=== PATIENT | female | born 1955 | race Caucasian/White ===

== ENCOUNTER 2018-12-06 11:36 | Outpatient (REF) | payer OTHER, SELFPAY ==
--- NOTE | 2018-12-06 10:00 | PAPFT_PTH ---
PATIENT: Ines Bhatti [facility] U#:[id number] AGE/SX: 63/F ROOM: RE12/06/[address]: Gerri Coker : 1955 BED: DIS: 12/06/2018 SPEC #: [id number] RECD: 12/07/18 12:53 STATUS: FARHAN REMaged #: [id number] NELSON: 12/06/18 10:[address]: Gerri Madsen DEPT: [facility] Cytology RECD BY: Juana Stapleton ENTERED: 12/07/18 12:53 SP TYPE: PAPFT OTHR DR: Rosa Jensen Tissues: 1 - CX/ENDOCX FOR PAP SMEARS Procedures: PAP THIN PREP/[facility] Screening HPV DNA PROBE Comments: [id number]
== END 2018-12-06 11:56 ==
LOC: NCHCN 11:36
PROVIDERS: PCP Internal Medicine; Visit Provider Nurse Practitioner Family
DX: Z00.00 Encounter for general adult medical examination without abnormal findings (principal); Z12.4 Encounter for screening for malignant neoplasm of cervix; Z11.51 Encounter for screening for human papillomavirus (HPV)
CPT/HCPCS: 88142; 87624

== ENCOUNTER 2019-03-23 14:17 | Outpatient (REF) | payer OTHER, SELFPAY ==
[2019-03-23 22:38] LABS: C-Reactive Protein 0.09 mg/dL (0.0-0.3)
[2019-03-23 23:08] LABS: ESR 12 mm/hr (0-30)
== END 2019-03-23 14:37 ==
LOC: NCHCN 14:17
PROVIDERS: PCP Internal Medicine; Visit Provider Nurse Practitioner Family
DX: M35.3 Polymyalgia rheumatica (principal)
CPT/HCPCS: 85652; 86140

== ENCOUNTER 2020-06-29 16:01 | Outpatient (REF) | payer MEDICARE, SELFPAY ==
[2020-06-29 13:32] LABS: C-Reactive Protein < 0.05 mg/dL (0.0-0.3)
[2020-06-29 14:17] LABS: ESR 10 mm/hr (0-30)
== END 2020-06-29 16:21 ==
LOC: NCHCN 16:01
PROVIDERS: PCP Internal Medicine; Visit Provider Nurse Practitioner Family
DX: R42 Dizziness and giddiness (principal); R03.0 Elevated blood-pressure reading, without diagnosis of hypertension
CPT/HCPCS: 85652; 86140

== ENCOUNTER 2020-12-20 10:32 | Outpatient (REF) | payer MEDICARE, BC, SELFPAY ==
[2020-12-20 15:43] LABS: HGB 15.4 g/dL (11.2-15.7); MCH 31.4 pg (27.0-33.0); MCHC 33.5 % (32.0-36.0); MCV 93.9 fL (80-95); MPV 9.5 fL (8.0-11.0); Platelet Count 335 10^3/uL (130-400); RDW 12.8 % (11.7-14.6); RDW-SD 44.4 fL; WBC 4.86 10^3/uL (4.4-10.8)
[2020-12-20 16:07] LABS: Hemoglobin A1C 5.6 % (<5.7)
[2020-12-20 16:45] LABS: ALT 26 U/L (14-59); AST 25 U/L (15-37); Albumin 4.1 g/dL (3.4-5.0); Alkaline Phosphatase 78 U/L (46-116); Anion Gap 8.8 mmol/L (3-11); BUN 19 mg/dL (7-18); Bilirubin, Total 0.3 mg/dL (0.2-1.0); CO2 30.2 mmol/L (21.0-32.0); Calcium 9.6 mg/dL (8.5-10.1); Calculated LDL 167 mg/dL (<100); Chloride 105 mmol/L (98-107); Cholesterol 256 mg/dL (<200); Estimated GFR 55.47 (mL/min/1.73m2); Glucose 90 mg/dL (74-106); HDL Cholesterol 55 mg/dL (40-60); Potassium 4.5 mmol/L (3.5-5.1); Sodium 144 mmol/L (136-145); Total Protein 7.4 g/dL (6.4-8.2); Triglyceride 173 mg/dL (<150)
== END 2020-12-20 10:33 | disposition home or self-care (01) ==
LOC: NCHCN 10:32
PROVIDERS: PCP Internal Medicine; Visit Provider Nurse Practitioner Family
DX: Z00.00 Encounter for general adult medical examination without abnormal findings (principal); R03.0 Elevated blood-pressure reading, without diagnosis of hypertension
CPT/HCPCS: 80053; 80061; 85027; 83036

== ENCOUNTER 2023-03-05 13:41 | Outpatient (REF) | payer MEDICARE, BC, SELFPAY ==
--- NOTE | 2023-03-05 11:00 | SKI_PTH ---
PATIENT: Ines Bhatti LOC: [facility]#:[id number] AGE/SX: 67/F ROOM: RE03/05/[address]: Gerri Coker : 1955 BED: DIS: 03/05/2023 SPEC #: [id number] RECD: 03/06/23 11:01 STATUS: FARHAN CHAUDHARI #: [id number] NELSON: 03/05/23 11:[address]: Gerri Madsen DEPT: Surgical Specimen RECD BY: Juana Stapleton ENTERED: 03/06/23 11:01 SP TYPE: FORD KU DR: Rosa Jensen Tissues: 1 - SKIN BIOPSY(SHAVE/PUNCH) Procedures: SKIN LEVEL 4 Comments: [id number]
== END 2023-03-05 13:42 | disposition home or self-care (01) ==
LOC: NCHCN 13:41
PROVIDERS: PCP Internal Medicine; Visit Provider Nurse Practitioner Family
DX: R23.8 Other skin changes (principal)
CPT/HCPCS: 88305

== ENCOUNTER 2023-06-22 15:49 | Outpatient (REF) | payer MEDICARE, BC, SELFPAY ==
[2023-06-22 21:50] LABS: Abs Immature Grans 0.02 10^3/uL (0.0-0.06); Absolute Basophil Count 0.03 10^3/uL (0.0-0.2); Absolute Eosinophil Count 0.09 10^3/uL (0.0-0.7); Absolute Lymphocyte Count 1.54 10^3/uL (1.2-3.4); Absolute Monocyte Count 0.43 10^3/uL (0.1-0.8); Absolute Neutrophil Count 4.21 10^3/uL (1.2-6.7); Basophils % 0.5; Eosinophils % 1.4; HCT 43.3 % (36.0-46.0); HGB 14.4 g/dL (11.2-15.7); Immature Grans % 0.3; Lymphocytes % 24.4; MCH 30.5 pg (27.0-33.0); MCHC 33.3 % (32.0-36.0); MCV 92 fL (80-95); MPV 9.2 fL (8.0-11.0); Monocytes % 6.8; Neutrophils % 66.6; Platelet Count 366 10^3/uL (130-400); RBC 4.72 10^6/uL (3.93-5.22); RDW 12.9 % (11.7-14.6); RDW-SD 43.8 fL; WBC 6.32 10^3/uL (4.4-10.8)
[2023-06-22 22:17] LABS: BUN 16 mg/dL (7-18); Calcium 9.5 mg/dL (8.5-10.1); Calculated LDL 190 mg/dL (<100); Chloride 105 mmol/L (98-107); Cholesterol 276 mg/dL (<200); Estimated GFR 60.98 (mL/min/1.73m2); Glucose 102 mg/dL (74-106); HDL Cholesterol 68 mg/dL (40-60); Potassium 4.6 mmol/L (3.5-5.1); Sodium 140 mmol/L (136-145); Triglyceride 93 mg/dL (<150)
== END 2023-06-22 15:50 | disposition home or self-care (01) ==
LOC: NCHCN 15:49
PROVIDERS: PCP Internal Medicine; Visit Provider Nurse Practitioner Family
DX: R03.0 Elevated blood-pressure reading, without diagnosis of hypertension (principal); R79.89 Other specified abnormal findings of blood chemistry
CPT/HCPCS: 80048; 80061; 85025

== ENCOUNTER 2023-07-01 11:21 | Outpatient (REF) | payer MEDICARE, BC, SELFPAY ==
[2023-07-01 15:09] LABS: Calculated LDL 184 mg/dL (<100); Cholesterol 255 mg/dL (<200); HDL Cholesterol 56 mg/dL (40-60); Triglyceride 75 mg/dL (<150)
== END 2023-07-01 11:22 | disposition home or self-care (01) ==
LOC: NCHCN 11:21
PROVIDERS: PCP Internal Medicine; Visit Provider Nurse Practitioner Family
DX: E78.89 Other lipoprotein metabolism disorders (principal)
CPT/HCPCS: 80061

== ENCOUNTER 2023-11-17 15:11 | Outpatient (REF) | payer MEDICARE, BC, SELFPAY ==
[2023-11-17 15:20] LABS: ALT 54 U/L (14-59); AST 38 U/L (15-37); Albumin 3.9 g/dL (3.4-5.0); Alkaline Phosphatase 106 U/L (46-116); Bilirubin, Total 0.5 mg/dL (0.2-1.0); Calculated LDL 92 mg/dL (<100); Cholesterol 176 mg/dL (<200); HDL Cholesterol 69 mg/dL (40-60); Total Protein 7.4 g/dL (6.4-8.2); Triglyceride 75 mg/dL (<150)
[2023-11-17 16:01] LABS: Bilirubin, Direct 0.1 mg/dL (0.0-0.2)
== END 2023-11-17 15:12 | disposition home or self-care (01) ==
LOC: NCHCN 15:11
PROVIDERS: PCP Internal Medicine; Visit Provider Nurse Practitioner Family
DX: E78.5 Hyperlipidemia, unspecified (principal)
CPT/HCPCS: 80061; 80076

== ENCOUNTER 2025-04-10 16:12 | Outpatient (REF) | payer MEDICARE, BC, SELFPAY ==
[2025-04-10 21:39] LABS: Anion Gap 6.0 mmol/L (3-11); BUN 15 mg/dL (7-18); CO2 31.0 mmol/L (21.0-32.0); Calcium 9.2 mg/dL (8.5-10.1); Chloride 104 mmol/L (98-107); Glucose 97 mg/dL (74-106); Potassium 4.7 mmol/L (3.5-5.1); Sodium 141 mmol/L (136-145)
== END 2025-04-10 16:13 | disposition home or self-care (01) ==
LOC: NCHCN 16:12
PROVIDERS: PCP Internal Medicine; Visit Provider Nurse Practitioner Family
DX: I10 Essential (primary) hypertension (principal)
CPT/HCPCS: 80048